=== PATIENT | male | born 1995 | race African-American/Black ===

== ENCOUNTER 2021-06-09 09:10 | Emergency (ER) | payer OTHER ==
[~2021-06-09] VITALS: Ht 162.6 cm; Wt 61.9 kg
[~2021-06-09 09:10] MED LIST: CLON0.1T PO; SERT25TA PO; SERT50TA PO; TRAZ-123 PO
[2021-06-09] MEDS ORDERED: HYDR28CR62 TP (09:59)
--- NOTE | 2021-06-09 09:59 | PHYS DOC ---
Past Medical History Past Medical History: Other Additional Past Medical Histor: HEMATURIA, AUTISM, MENTAL RETARDATION Past Surgical History: No Surgical History Smoking Status: Never Smoker Alcohol Use: None Drug Use: None General Adult EDM: Chief Complaint: FINGER INJURY HPI: HPI: Patient is a 25-year-old male presents to the emergency department with mother at bedside who is primary caregiver related to patient's history of autism and severe MR, is nonverbal. Patient's mother reports he was bitten in April on the right ring finger and was diagnosed at with a herpes infection. Was given medication which seemed to clear the herpes infection up however she has been cleansing daily with peroxide and antibacterial soap and is concerned that his skin is not healing back to normal. Reports immunizations are up-to-date, last tetanus immunization less than 5 years ago. Denies other physical complaints or physical concerns for her son. Primary historian is patient's mother. Review of Systems: Review of Systems: Limited ROS related to chief historian is patient's mother, patient is nonverbal related to history of autism and severe MR. Heart Score: C/O Chest Pain: No Risk Factors: Risk Factors: DM, Current or recent (<one month) smoker, HTN, HLP, family history of CAD, obesity. Risk Scores: Score 0 - 3: 2.5% MACE over next 6 weeks - Discharge Home Score 4 - 6: 20.3% MACE over next 6 weeks - Admit for Clinical Observation Score 7 - 10: 72.7% MACE over next 6 weeks - Early Invasive Strategies Allergies: Allergies: Allergies Coded Allergies Type Severity Reaction Last Updated Verified No Known Drug Allergies 10/07/13 No Physical Exam: PE: Constitutional: Well developed, well nourished, no acute distress, non-toxic appearance. 25-year-old male is nonverbal however in no apparent distress. HENT: Normocephalic, atraumatic. Eyes: Conjunctiva normal, no discharge. Neck: Normal range of motion, no stridor. Cardiovascular: No cyanosis appreciated, distal cap refill less than 2 seconds. Lungs & Thorax: Patient is in no respiratory distress, no audible adventitious lung sounds appreciated. Abdomen: Nontender, no abnormalities noted. Skin: Warm, dry, no erythema, no rash. See extremity note for focused skin examination Back: No tenderness, no deformities. Extremities: No tenderness, no cyanosis, no clubbing, ROM intact, no edema. Right fourth digit has darkened skin area with lichenification along the palmar surface without skin lesion, no drainage, no swelling, no erythema, skin is soft to palpate, no pain elicited passive range of motion. Distal cap refill is less than 2 seconds. 2+ radial pulse. Neurologic: Alert, unable to obtain orientation related to patient's severe MR and history of autism, is nonverbal, no motor or focal deficits appreciated. Psychiatric: Patient history severe MR with autism, does follow commands. Is no nverbal. EKG: EKG: [] Radiology/Procedures: Radiology/Procedures: [] Course & Med Decision Making: Course & Med Decision Making Pertinent Labs and Imaging studies reviewed. (See chart for details) 25-year-old male, vital signs reviewed, presents to the emergency department brought by mother who is concerned that his right ring finger is not healing to her satisfaction. Physical examination reveals skin lichenification of the right ring finger palmar aspect, there is no infectious process appreciated, skin presentation is most likely from cleansing daily with hydrogen peroxide, discussed with patient's mother to cleanse with mild soap and water and apply skin lotions, patient's mother's states she feels he is having problems with itching, the patient does not appear to be attentive to this finger and is not scratching, there is no pain elicited upon palpation, skin is soft but dry over this area. Discussed with patient's mother will give information to follow-up with [facility], will prescribe cortisone cream for itching discomfort. Patient's mother is amenable to ED discharge planning. Discussed with the patient all findings and diagnostic testing as well as the need to follow-up with their primary care provider for further evaluation and treatment or return to the ED if any new or worsening symptoms. Strict return precautions were also discussed at length, the patient voiced understanding and agreement with the discharge planning. The patient was nontoxic in appearance, in no apparent distress, and hemodynamically stable at the time of disposition. Dragon Disclaimer: Dragon Disclaimer: This electronic medical record was generated, in whole or in part, using a voice recognition dictation system. Departure Departure Impression: Primary Impression: Finger infection Disposition: HOME / SELF CARE / HOMELESS Condition: GOOD Referrals: FRANKY GONG (PCP) Additional Instructions: You are seen today in the emergency department for an ongoing skin infection of the right ring finger. I am prescribing a cream to apply for itching. As we discussed, please follow-up with the [facility] located in the [facility] [address]. Please call area code first thing this Thursday morning to make an appointment to be evaluated by one of the wound care specialty physicians. Continue to cleanse with mild soap and water and apply the prescribed cream as directed. Return to the emergency department for worsening symptoms or other concerns. Thank you for visiting our Emergency Department. It was a pleasure taking care of you today in the emergency department and we appreciate you trusting us with your care. If any additional problems come up don't hesitate to return to visit us. Please follow up with your primary care provider so they can plan additional care if needed and know about the problem that you had. If symptoms worsen come back to the Emergency Department. Any concerning symptoms that start such as chest pain, shortness of air, weakness or numbness on one side of the body, running high fevers or any other concerning symptoms return to the ER. [facility] [address] [place] [address], [address] [place] [address] Scripts Hydrocortisone/Aloe Vera (Cortizone-10 1% Creme) 28 Gm Cream..g. 28 GM TP TID for Finger itching for 7 Days, #1 EA 0 Refills Please apply a small amount to the affected finger 3 times a day for itching and discomfort. Prov: DEONDRE DILLON APRN 06/09/21 DEONDRE DILLON APRN Jun 09, 2021 09:59
[2021-06-09 10:14] VITALS: BP 112/57
== END 2021-06-09 10:18 | disposition home or self-care (01) ==
LOC: ER 09:10
DX: L08.9 Local infection of the skin and subcutaneous tissue, unspecified (principal); M79.644 Pain in right finger(s); F84.0 Autistic disorder
CPT/HCPCS: 99282